=== PATIENT | female | born 1970 ===

== ENCOUNTER 2021-11-04 05:14 | Day surgery (SDC) | payer OTHER ==
[~2021-11-04 05:14] MED LIST: DILTIAZEM ER120 M2 PO; GABAPENTIN300 M2 PO; GLIPIZIDE XL10 MG PO; LASIX20 MG PO; LOSARTAN-HCTZ1 EAC1 PO; METFORMIN HCL1000 M2 PO; NORVASC5 MG PO; TOUJEO MAX300 UNIT/1; ZOCOR20 MG PO
[2021-11-04] MEDS ORDERED: PERCOCET 5-3251 EACH PO (09:27)
== END 2021-11-04 13:25 | disposition home or self-care (01) ==
LOC: CIR.AMB 05:14
PROVIDERS: ATTEND Surgery
DX: E04.8 Other specified nontoxic goiter (principal); R59.1 Generalized enlarged lymph nodes; I10 Essential (primary) hypertension; Z86.16 Personal history of COVID-19; G47.33 Obstructive sleep apnea (adult) (pediatric); Z87.442 Personal history of urinary calculi; E66.9 Obesity, unspecified; Z79.84 Long term (current) use of oral hypoglycemic drugs; E11.9 Type 2 diabetes mellitus without complications